=== PATIENT | female | born 1975 | race Caucasian/White ===

== ENCOUNTER 2020-06-13 13:28 | Outpatient (REF) | payer OTHER, SELFPAY | END 2020-06-13 13:29 | disposition home or self-care (01) | LOC: HO.LAB 13:28 | PROVIDERS: Visit Provider Internal Medicine | DX: Z20.822 Contact with and (suspected) exposure to COVID-19 (principal) | CPT/HCPCS: 36415; C9803; U0003; U0005 ==

== ENCOUNTER 2021-01-03 17:45 | Emergency (ER) | payer OTHER, SELFPAY ==
[2021-01-03 18:04] VITALS: BP 122/76; PULSE 63; RESP 18; TEMP 36.8; O2SAT 100; BMI 26.6
--- NOTE | 2021-01-03 20:33 | ED_ITS ---
HPI - Skin/Abscess/Foreign Bdy General Chief complaint: Skin/Abscess/Foreign Body Stated complaint: breast implant broke through skin Time Seen by Provider: 01/03/21 17:59 History of Present Illness HPI narrative: 45 yold female presents to the ED for left breast implant coming out of left breast. Patient this has been occurring since last saturday. patient had breast implant surgery 20 years ago. Patient has follow up with [facility] Plastic Surgeon on January 10. Related Data Allergies Allergy/AdvReac Type Severity Reaction Status Date / Time acetaminophen Allergy Unknown nausea and Verified 01/03/21 18:03 [Tylenol-Codeine #3] vomiting codeine Allergy Unknown nausea and Verified 01/03/21 18:03 vomiting No Known Allergies Allergy Verified 01/03/21 18:03 risperidone Allergy Seizure Verified 01/03/21 18:03 Review of Systems Review of Systems: Yes all other systems are reviewed and are negative Constitutional: Constitutional: Reports as per HPI and Reports no additional constitutional complaints Eyes: Eyes: Reports as per HPI and Reports no additional eye complaints ENT: Reports system reviewed and no additional complaints, except as documented and Reports as per HPI Cardiovascular: Cardiovascular: Reports as per HPI and Reports no additional cardiovascular complaints Respiratory: Respiratory: Reports as per HPI and Reports no additional respiratory complaints Gastrointestinal: Gastrointestinal: Reports as per HPI and Reports no additional gastrointestinal complaints Genitourinary: Genitourinary: Reports no additional female genitourinary complaints and Reports as per HPI Musculoskeletal: Musculoskeletal: Reports no additional musculoskeletal complaints and Reports as per HPI Integumentary/Breasts: Skin/Breast: Reports system reviewed and no additional complaints, except as docu and Reports as per HPI Comments: left breast implant coming out Neurologic: Reports system reviewed and no additional complaints, except as documented and Reports as per HPI Psychiatric: Psychiatric: Reports no additional psychiatric complaints and Reports as per HPI PMFSH Past Medical History Medical History (Updated 01/03/21 @ 20:47 by MEGGAN Aviles) Breast implant leak Hepatitis C Social History Social History Advance Directives: No Advance Directives Information Provided: No Physical Exam Vital Signs: Vital Signs: Last Vital Signs Temp 98.2 F 01/03/21 18:04 Pulse 63 01/03/21 18:04 Resp 18 01/03/21 18:04 BP 122/76 01/03/21 18:04 Pulse Ox 100 01/03/21 18:04 Body Mass Index 26.6 Const: General: cooperative, healthy appearing, comfortable, no acute distress, well developed, alert, awake and Physically active HENMT: Head: Yes normal to inspection, Yes No palpable skull fracture present, Yes normocephalic, Yes atraumatic and No abrasion Eyes: General: appearance normal, both eyes and all related structures Neck: Neck: Yes normal visual inspection, Yes full ROM, Yes no lymphadenopathy, Yes no meningeal signs, Yes trachea midline, Yes supple and No tender Chest: Other: Negative for erythema, tenderness, pus discharge, or foul odor. Negative for signs of infection. Chest palpation & inspection: normal inspection of the chest and normal palpation of entire chest wall Resp: Effort & Inspection: normal respiratory effort and able to speak in complete sentences Auscultation: clear to auscultation bilaterally Cardio: Jugular venous distension: no JVD Heart sounds: S1 normal heart sound present and S2 normal heart sound present GI: Inspection: Yes normal to inspection and No abdominal wall ecchymosis Palpation (GI): Soft to palpation, not firm, nontender, no guarding and not rigid : General: No CVA tenderness and Yes no CVA tenderness Back/Spine/Pelvis: Back: no CVA tenderness, No CVA tenderness and No back tenderness Skin: General skin exam: no rashes or lesions noted and elasticity normal Neuro: General: no meningeal signs Course Course Course Narrative: Will contact surgeon on-call. Reevaluation(s) Reevaluation #1: Spoke with Dr. Colon who states presently there is no emergent indication for admission for surgery, but does recommend patient have a closer follow-up than january 10 with plastic surgeon for intervention. Dr. Colon states patient can follow up with outpatient. Negative for signs of cellulitis or infection but patient already given antibiotics by PCP as pro phylaxis. Patient informed to call plastic surgeon tomorrow from [facility] for earlier appointment meeting this week for intervention. Time: 20:44 Discharge Plan Discharge Clinical Impression: Extrusion of breast implant Patient Disposition: Home, Self-Care Instructions: Breast Augmentation (DC) Additional Instructions: As recommended by a surgeon Dr. Colon, you will need to contact your plastic surgeon tomorrow morning for early appointment to schedule intervention for breast implant. Return to the ED immediately for any redness, foul odor, severe pain, fever, chills, pus or odor, or any other concerning symptoms. Interventions: ED Discharge Assessment Last Done: 01/03/21 21:24 Discharge Date/Time: 01/03/21 21:25 Print Language: Maldivian
--- NOTE | 2021-01-03 21:23 | PC.NURSE ---
WITNESSED ASSESSMENT OF PT LEFT BREAST WITH MEGGAN XIAO. MEGGAN XIAO REACHED OUT TO GENERAL SURGERY AND THEY WILL NOT SEE THE PT AT THIS TIME BUT REQUESTING THAT THE PT BE SEEN URGENTLY BY PLASTIC AT [facility].
== END 2021-01-03 21:25 | disposition home or self-care (01) ==
PROVIDERS: Emergency Provider Internal Medicine
DX: T85.42XA Displacement of breast prosthesis and implant, initial encounter (principal); N64.4 Mastodynia; Y81.3 Surgical instruments, materials and general- and plastic-surgery devices (including sutures) associated with adverse incidents; Y92.239 Unspecified place in hospital as the place of occurrence of the external cause
CPT/HCPCS: 99283

== ENCOUNTER 2023-03-29 23:39 | Emergency (ER) | payer OTHER, SELFPAY ==
[2023-03-29 23:41] VITALS: BP 119/69; PULSE 102; RESP 18; TEMP 36.8; O2SAT 93; BMI 31.3
[2023-03-30 00:24] LABS: PLT CLUMP 1
[2023-03-30 00:26] LABS: Hematocrit 31.9 % (37.0-47.0); Hemoglobin 10.8 g/dl (12.0-16.0); Mean Corpuscular HGB Conc 33.9 g/dl (31.0-35.0); Mean Corpuscular Hemoglobin 29.4 pg (27.0-33.0); Mean Corpuscular Volume 86.9 fL (80.0-98.0); Mean Platelet Volume 10.9 fL (9.4-12.3); Red Blood Count 3.67 X10*6/uL (4.20-5.50); Red Cell Distribution Width 12.8 % (11.0-16.0); White Blood Count 15.2 X10*3/uL (4.8-10.8)
[2023-03-30 00:39] LABS: Alanine Aminotransferase 22 U/L (0-31); Albumin Level 3.9 g/dL (3.5-5.0); Alkaline Phosphatase 73 U/L (39-117); Anion Gap 19 (12-20); Aspartate Amino Transferase 49 U/L (5-31); Bilirubin Total 0.4 mg/dL (0.0-1.0); Blood Urea Nitrogen 40 mg/dL (9-16); Calcium 9.2 mg/dL (8.4-10.2); Carbon Dioxide 16 mmol/L (22-29); Chloride 101 mmol/L (96-108); Creatinine Clr Calc Pharmacy 35.9; Estimated Glomerular Filt Rate 25; Glucose Random 101 mg/dL (60-115); Potassium 5.1 mmol/L (3.3-5.1); Sodium 131 mmol/L (135-145)
[2023-03-30 00:40] LABS: IDNOW Serial# 08D9AD1C; Strep A Nucleic Acid Negative (Negative)
[2023-03-30 00:45] LABS: Neutrophils Percent Manual 69 % (45-73)
[2023-03-30 00:47] LABS: Band Neutrophils Percent 17 % (3-5); Lymphocytes Absolute Manual 1.8 X10*3/uL (1.2-4.9); Lymphocytes Percent Manual 12 % (20-40); Monocytes Absolute Manual 0.3 X10*3/uL (0.1-1.2); Monocytes Percent Manual 2 % (2-11); Neutrophils Absolute Manual 13.1 X10*3/uL (2.0-8.3)
[2023-03-30 00:48] LABS: Platelet Estimate NORMAL (NORMAL); Platelet Morphology Comment NOTE; RBC Morphology NORMAL
[2023-03-30 00:49] LABS: Toxic Vacuolation PRESENT
[2023-03-30 01:02] LABS: Influenza A PCR NEGATIVE (Negative); Influenza B PCR NEGATIVE (Negative); Resp Syncy Virus RNA Qual PCR NEGATIVE (Negative); SARS COV2 PCR INHOUSE NEGATIVE (Negative)
== END 2023-03-30 01:01 | disposition left against medical advice (07) ==
PROVIDERS: Emergency Provider Emergency Medicine
DX: R06.02 Shortness of breath (principal); Z20.822 Contact with and (suspected) exposure to COVID-19; Z20.828 Contact with and (suspected) exposure to other viral communicable diseases; Z79.899 Other long term (current) drug therapy
CPT/HCPCS: 0241U; 80053; 85007; 85027; 87651; 99281; 99283